=== PATIENT | female | born 1980 | race Caucasian/White ===

== ENCOUNTER 2025-04-21 12:43 | Observation (INO) | payer OTHER, SELFPAY ==
[2025-04-21] VITALS (13 sets, daily range): BP systolic 84–122; BP diastolic 47–79; PULSE 71–89; RESP 10–17; TEMP 35.9–36.8; O2SAT 86–100; BMI 28.3; BMI 29.9
--- NOTE | 2025-04-21 | PATH_ITS ---
[facility] Accession Number: [id number] No. of containers..01 Tissue . 01 Material submitted: . appendix - APPENDIX . 01 Diagnosis: A: APPENDIX, APPENDECTOMY: Acute suppurative appendicitis and periappendicitis. [facility] 04/25/2025 1241 Local . 01 Electronically signed: . Malvin Troncoso MD, Pathologist NPI- [id number] . 01 Gross description: . Received in formalin with two identifiers and appendix, is a cortes vermiform appendix, 6.2 cm in length and ranging from 0.4t to 1.2 cm in diameter. The serosa is cortes and roughened with adherent material consistent with exudate and a small amount of mesoappendix extending out to 0.9 cm. The margin is inked blue. The lumen contains a small amount of red-brown semisolid material and ranges from 0.1 to 0.5 cm in greatest dimension. The pyle range from 0.2 to 0.4 cm thick with no perforation or lesions identified. Nuisance Wildlife Trapper sections to include the margin, entire bisected distal tip, and cross section are submitted in A1. ([id number]) /MRV 04/24/20251954 Local . 01 Pathologist provided ICD-10: K37 . 01 CPT . 645106 Specimen Comment: A courtesy copy of this report has been sent to [facility] Pathology Performed at: [address] [address], [place], [place] [id number] MD Brent Baires MD Phone: [phone]
[2025-04-21 13:34] LABS: Add Manual Diff / Slide Review NO; Basophils Absolute Auto 100 /uL (0-100); Basophils Percent Auto 0.4 % (0-2); Eosinophils Absolute Auto 0 /uL (0-450); Eosinophils Percent Auto 0.3 % (2-4); Hematocrit 38.9 % (36-46); Hemoglobin 13.5 g/dL (12.0-16.0); Lymphocytes Absolute Auto 1300 /uL (1100-4500); Lymphocytes Percent Auto 11.1 % (25-40); Mean Corpuscular HGB Conc 34.7 % (30-36); Mean Corpuscular Hemoglobin 31.3 PG (26-34); Mean Corpuscular Volume 90.1 fL (80-100); Monocytes Absolute Auto 900 /uL (0-900); Monocytes Percent Auto 7.2 % (3-14); Neutrophils Absolute Auto 9600 /uL (1500-7000); Platelet Count 216 X10^3/uL (150-400); Red Blood Cell Count 4.31 X10^6/uL (4.0-5.2); Red Cell Distribution Width 12.7 % (11.6-14.8); White Blood Cell Count 11.9 X10^3/uL (4.5-11.0)
[2025-04-21 13:40] LABS: Alanine Aminotransferase 18 IU/L (<35); Albumin 4.3 g/dL (3.5-5.0); Albumin Globulin Ratio 1.4 (1.0-2.8); Alkaline Phosphatase 59 U/L (38-126); Aspartate Aminotransferase 23 IU/L (14-36); BUN Creatinine Ratio 16.9 (6-22); Bilirubin Total 0.8 mg/dL (0.2-1.3); Blood Urea Nitrogen 11 mg/dL (7-17); Calcium 8.9 mg/dL (8.4-10.2); Carbon Dioxide 19 mmol/L (22-32); Chloride 106 mmol/L (98-107); Estimated Glomerular Filt Rate > 60 mL/min (>60); Glucose 102 mg/dL (70-99); HEMOLYSIS 16 (0-50); Lipase 75 U/L (23-300); Potassium 3.8 mmol/L (3.4-5.1); Sodium 136 mmol/L (137-145); Total Protein 7.3 g/dL (6.3-8.2)
[2025-04-21 14:39] LABS: Bacteria Urine Occasional (0-1); Culture Indicated Urine Cult Not Indicated; RBC Urine 0-1/HPF (0-5/HPF); Squamous Epithelial Cell Urine 1-5 /HPF (0-5/HPF); Urine Volume 10mL (spun); WBC Urine None Seen (0-5/HPF)
[2025-04-21] MEDS: LACTATED RINGERS 1,000 ML 42 ML IV ×3 (16:30→20:54)
--- NOTE | 2025-04-21 16:42 | DI.CT.S_ITS ---
PROCEDURE: CT ABDOMEN PELVIS W CON INDICATIONS: RLQ pain, please evaluate for appendicitis TECHNIQUE: After the administration of intravenous contrast, axial sections acquired from the lung bases to the pubic symphysis. Coronal and sagittal reformats were performed. For radiation dose reduction, the following was used: automated exposure control, adjustment of mA and/or kV according to patient size. COMPARISON: None. FINDINGS: Image quality: Diagnostic. Lower Chest: No significant findings. ABDOMEN: Liver: No solid mass. Several water density liver cysts are seen. Gallbladder: No radiopaque gallstones or wall thickening. Biliary ducts: No biliary dilation. Pancreas: No ductal dilation. Spleen: Size is within normal limits. Adrenal Glands: No adrenal nodules. Kidneys and Ureters: No hydronephrosis. No solid mass. No complex renal cystic lesion which requires follow up. Bowel and peritoneal: The wall of the appendix is hyperenhancing and markedly thickened, with a caliber of 15 mm. Surrounding inflammatory change can be seen. No free air is seen. There is significant fluid seen along the right pericolic gutter, measuring at least 10 cm craniocaudal. No dilated loops of small bowel are seen. No significant colonic abnormality is seen. Ventral Wall: A mild periumbilical hernia is seen, containing fat. Abdominal Nodes: No retroperitoneal or mesenteric adenopathy by size criteria. Vessels: Aorta and inferior vena cava are normal in size. PELVIS: Pelvic Organs: The IUD is seen at its expected location. There is a likely left ovarian hemorrhagic cyst, as on series 2, image 100, measuring 2 cm. Bladder: No bladder wall thickening, accounting for underdistention. Pelvic Nodes: No enlarged lymph nodes. Miscellaneous: No inguinal hernias are seen. Bones: No aggressive osseous abnormality. IMPRESSION: Acute appendicitis, without kandy perforation. There is significant fluid along the right pericolic gutter, which may represent inflammatory fluid or abscess. Additional findings: Water density liver cysts Mild fat containing periumbilical hernia Likely left ovarian hemorrhagic cyst, 2 mm IUD Note: Case discussed by telephone with JOHN Orozco at 5:22 p.m. [place] time on April 21, 2025. Dictated by: Gerardo Arcos M.D. on 04/21/2025 at 16:13 Approved by: Gerardo Arcos M.D. on 04/21/2025 at 16:23
[2025-04-21] MEDS: KETOROLAC 30 MG/ML VIAL IV ×2 (16:51→19:32)
--- NOTE | 2025-04-21 17:55 | P.HP_ITS ---
History of Present Illness History of Present Illness Date Patient Seen: 04/21/25 Chief complaint: LRQ Abd Pain Narrative: 44-year-old female with an 18 hour history of generalized abdominal pain and bloating which subsequently localized to her right lower quadrant. She presented to the ED where right lower quadrant tenderness was elicited, white count of 11.[address] was [address] abdomen pelvis demonstrated findings consistent with acute appendicitis. She is admitted for definitive management. [facility] Social History Smoking Status: Never smoker Meds Home Medications and Allergies Allergies Allergy/AdvReac Type Severity Reaction Status Date / Time No Known Drug Allergies Allergy Verified 04/21/25 12:57 Review of Systems Review of Systems Narrative: Comprehensive review of systems negative to direct questioning with the exception of the previously mentioned chronic conditions. Exam Vital Signs (past 8 hours): - 04/21/25 12:57 04/21/25 16:45 Temperature 97.6 F 97.7 F Pulse Rate 89 75 Respiratory Rate 16 16 Blood Pressure 110/62 122/58 L Pulse Oximetry 100 99 Oxygen Delivery Method Room Air Room Air Oxygen Delivery Method Room Air Narrative Exam Narrative: In general this is well-nourished well-developed female alert and oriented x3 in no acute distress. She complains of right lower quadrant abdominal pain. Head is normocephalic and atraumatic. Neck is supple. Back is without CVA or spinous process tenderness. Lungs are clear to auscultation. Chest is symmetric nontender with normal inspiratory and expiratory excursion. Heart has a regular rate and rhythm with no murmur or gallop. Abdomen is generally soft with McBurney's point tenderness. There is no Rovsing sign. Bowel sounds are present. Neurological exam is grossly nonfocal. Skin is clear and there is no adenopathy. Extremities manifests full range of motion. Objective Labs 04/21/25 13:06 04/21/25 13:06 Labs: Laboratory Results - last 24 hr 04/21/25 04/21/25 13:06 14:05 WBC 11.9 H RBC 4.31 Hgb 13.5 Hct 38.9 MCV 90.1 MCH 31.3 MCHC 34.7 RDW 12.7 Plt Count 216 Neut % (Auto) 81.0 H Lymph % (Auto) 11.1 L [place] % (Auto) 7.2 Eos % (Auto) 0.3 L Baso % (Auto) 0.4 Neut # (Auto) 9600 H Lymph # (Auto) 1300 [place] # (Auto) 900 Eos # (Auto) 0 Baso # (Auto) 100 Sodium 136 L Potassium 3.8 Chloride 106 Carbon Dioxide 19 L BUN 11 Creatinine 0.65 Estimated GFR > 60 BUN/Creatinine Ratio 16.9 Glucose 102 H Calcium 8.9 Total Bilirubin 0.8 AST 23 ALT 18 Alkaline Phosphatase 59 Total Protein 7.3 Albumin 4.3 Globulin 3.0 Albumin/Globulin Ratio 1.4 Lipase 75 Urine RBC 0-1/hpf Urine WBC None seen Ur Squamous Epith Cells 1-5 /hpf Urine Bacteria Occasional (0-1) Ur Culture Indicated? Cult not indicated Vol Urine Centrifuged 10ml (spun) Assessment & Plan Assessment and plan (1) Acute appendicitis: Qualifiers: Acute appendicitis type: with localized peritonitis Appendicitis gangrene presence: without gangrene Appendicitis perforation presence: without perforation Appendicitis abscess presence: without abscess Qualified Code(s): K35.30 - Acute appendicitis with localized peritonitis, without perforation or gangrene Status: Acute Plan I have recommended a laparoscopic attempt at appendectomy. Alternatives, risks and benefits were discussed in detail. Questions were answered. Patient voices understanding and desires to proceed as I have outlined. Plan: Laparoscopic attempt at appendectomy. Time-Based Coding :: [TOTAL MINUTES] spent with patient and on the chart (including review of chart, obtaining history, exam, reviewing outside data, placing orders, documenting exam and treatment plan, and counseling patient) on [DATE]. 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
--- NOTE | 2025-04-21 18:02 | ED_ITS ---
HPI - Abdominal Pain General Chief Complaint: Abdominal Pain Stated Complaint: LRQ Abd Pain Time Seen by Provider: 04/21/25 16:17 Source: patient Mode of arrival: Ambulatory History of Present Illness HPI narrative: 44-year-old female here today for right lower quadrant pain. States last night after dinner she began experiencing bloating and discomfort in her abdomen along with nausea. Later in the evening the pain moved down to her right lower quadrant and all night she had difficulty getting comfortable. She had pain in whatever position she was in. No vomiting but felt nauseous all night. No fevers but had some chills. This morning the pain was slightly better but not by much. She took 3 ibuprofen this morning which did not help. States the pain has been constant and persistent and is worse whenever she tries to move. If she is sitting completely still it is manageable but As soon as she tries to shift positions or get up to walk the pain intensifies. pain continues to be in the right lower quadrant. She has no urinary symptoms. Last menstrual period 2 weeks ago. Has not IUD. No history of ovarian cysts. Related Data Home Medications Medication Instructions Recorded Confirmed amitriptyline 10 mg tablet 10 mg PO ONCE PM 04/21/25 04/21/25 levothyroxine 25 mcg tablet 25 mcg PO DAILY 04/21/25 04/21/25 sumatriptan succinate 50 mg tablet 50 mg PO DAILY PRN Migraine 04/21/25 04/21/25 Headache Previous Rx's Medication Instructions Recorded hydrocodone 5 mg-acetaminophen 325 1 tab PO Q6H PRN pain #30 tabs 04/22/25 mg tablet Allergies Allergy/AdvReac Type Severity Reaction Status Date / Time No Known Drug Allergies Allergy Verified 04/21/25 12:57 Review of Systems Review of Systems ROS Unobtainable: All systems reviewed & are unremarkable except as noted in HPI and below Patient History Social History household members: spouse Smoking Status: Never smoker Smoking Status: Never smoker Exam Narrative Exam Narrative: GENERAL: [44] year old patient appears stated age. Well-developed patient, in no acute distress. HEAD: Atraumatic. Normocephalic. EYES: Pupils equal round and reactive. Extraocular motions intact. No scleral icterus. No injection or drainage. ENT: Nose without bleeding, purulent drainage. Throat without erythema, tonsillar hypertrophy or exudate. Airway patent. NECK: Trachea midline. Non tender CARDIOVASCULAR: Regular rate and rhythm without murmurs, gallops, or rubs. RESPIRATORY: Clear to auscultation. Breath sounds equal bilaterally. No wheezes, rales, or rhonchi. GASTROINTESTINAL: Abdomen soft, nondistended. no guarding or rebound. Tenderness to light palpation present in the McBurney's region. Positive psoas sign. SKIN: No rash or erythema of visible areas Initial Vital Signs Initial Vital Signs: Vital Signs Temperature 97.6 F 04/21/25 12:57 Pulse Rate 89 04/21/25 12:57 Respiratory Rate 16 04/21/25 12:57 Blood Pressure 110/62 04/21/25 12:57 Pulse Oximetry 100 04/21/25 12:57 Oxygen Delivery Method Room Air 04/21/25 12:57 Course Orders Ordered: Discontinued Medications Acetaminophen (Acetaminophen 325 Mg Tablet) 650 mg PO Q6H LULY Hydrocodone Bitart/Acetaminophen (Hydrocodone/Acet 5/325 Tablet) 1 tab PO Q4H PRN PRN Reason: Pain, Moderate (4-6) Benzocaine (Benzocaine/Menthol 1 Shruthi Pkt) 1 each PO PRN PRN PRN Reason: Sore Throat Bupivacaine HCl (Bupivacaine 0.5% (Pf) 30 Ml Vial) 30 ml INJ NOW ONE Stop: 04/21/25 18:54 Last Admin: 04/21/25 18:53 Dose: 9 ml Documented By: RT Dexamethasone (Dexamethasone 10 Mg/Ml Vial) 8 mg IV NOW PRN PRN Reason: Nausea And Vomiting Enoxaparin Sodium (Enoxaparin 40 Mg/0.4 Ml Syringe) 40 mg SUBCUT DAILY [facility] Fentanyl (Fentanyl 100 Mcg/2 Ml Inj) 0 mcg IV Q5M PRN PRN Reason: Pain, Moderate (4-6) Hydromorphone HCl (Hydromorphone 1 Mg Inj) 0 mg IV Q5MIN PRN PRN Reason: Pain, Moderate (4-6) Hydromorphone HCl (Hydromorphone 2 Mg Tablet) 4 mg PO Q4HR PRN PRN Reason: Pain, Severe (7-10) Hydromorphone HCl (Hydromorphone 0.5 Mg Inj) 0.5 mg IV Q2H PRN PRN Reason: Pain, Severe (7-10) Hydroxyzine HCl (Hydroxyzine 50 Mg/Ml Inj) 25 mg IM NOW PRN PRN Reason: Pain, Mild (1-3) Hydroxyzine HCl (Hydroxyzine Hcl 25 Mg Tablet) 25 mg PO NOW PRN PRN Reason: Pain, Mild (1-3) Cefazolin Sodium/Dextrose (Ancef) 100 mls @ 200 mls/hr IV NOW ONE Stop: 04/21/25 18:28 Last Infusion: 04/21/25 18:37 Dose: 200 mls/hr Documented By: Admin: 04/21/25 18:28 Dose: 200 mls/hr Documented By: MARTHA Acetaminophen (Ofirmev) 1,000 mg in 100 mls @ 400 mls/hr IV NOW ONE Stop: 04/21/25 19:09 Last Infusion: 04/21/25 19:10 Dose: Infused Documented By: Admin: 04/21/25 18:55 Dose: 400 mls/hr Documented By: MARTHA Lactated Ringer's (Lactated Ringers) 1,000 mls @ 125 mls/hr IV CONT [facility] Last Admin: 04/21/25 21:17 Dose: Not Given Documented By: AT Lactated Ringer's (Lactated Ringers) 1,000 mls @ 42 mls/hr IV CONT [facility] Last Admin: 04/21/25 20:54 Dose: 42 mls/hr Documented By: Infusion: 04/21/25 20:54 Dose: Infused Documented By: Infusion: 04/21/25 19:51 Dose: Infused Documented By: Admin: 04/21/25 19:51 Dose: 42 mls/hr Documented By: Admin: 04/21/25 16:30 Dose: 42 mls/hr Documented By: CB Ketorolac Tromethamine (Ketorolac 30 Mg/Ml Vial) 30 mg IV NOW ONE Stop: 04/21/25 16:42 Last Admin: 04/21/25 19:32 Dose: 30 mg Documented By: Admin: 04/21/25 16:51 Dose: 30 mg Documented By: SB Naloxone HCl (Naloxone 0.4 Mg/Ml Vial) 0.2 mg IV Q2MIN PRN PRN Reason: Opiate Reversal Ondansetron HCl (Ondansetron 4 Mg/2 Ml Inj) 4 mg IV NOW PRN PRN Reason: Nausea And Vomiting Ondansetron HCl (Ondansetron 4 Mg Odt) 4 mg PO NOW PRN PRN Reason: Nausea And Vomiting Ondansetron HCl (Ondansetron 4 Mg/2 Ml Inj) 4 mg IV NOW PRN PRN Reason: Nausea And Vomiting Ondansetron HCl (Ondansetron 4 Mg/2 Ml Inj) 4 mg IV Q4HR PRN PRN Reason: Nausea And Vomiting Oxycodone HCl (Oxycodone Ir 5 Mg Tablet) 5 mg PO [place] PRN PRN Reason: Mild or moderate pain Scopolamine (Scopolamine 1 Patch) 1 patch TOP NOW ONE Stop: 04/21/25 19:13 Last Admin: 04/21/25 19:48 Dose: 1 patch Documented By: BATOOL Vital Signs Vital signs: Vital Signs - 8 hr 04/21/25 12:57 04/21/25 16:45 Temperature 97.6 F 97.7 F Pulse Rate 89 75 Respiratory Rate 16 16 Blood Pressure 110/62 122/58 L Pulse Oximetry 100 99 Oxygen Delivery Method Room Air Room Air MDM - Abdominal Pain Lab Data 04/21/25 13:06 04/21/25 13:06 Labs: Lab Results 04/21/25 04/21/25 Range/Units 13:06 14:05 WBC 11.9 H (4.5-11.0) X10^3/uL RBC 4.31 (4.0-5.2) X10^6/uL Hgb 13.5 (12.0-16.0) g/dL Hct 38.9 (36-46) % MCV 90.1 (80-100) fL MCH 31.3 (26-34) PG MCHC 34.7 (30-36) % RDW 12.7 (11.6-14.8) % Plt Count 216 (150-400) X10^3/uL Neut % (Auto) 81.0 H (50-75) % Lymph % (Auto) 11.1 L (25-40) % [place] % (Auto) 7.2 (3-14) % Eos % (Auto) 0.3 L (2-4) % Baso % (Auto) 0.4 (0-2) % Neut # (Auto) 9600 H (2446-3853) /uL Lymph # (Auto) 1300 (6929-0550) /uL [place] # (Auto) 900 (0-900) /uL Eos # (Auto) 0 (0-450) /uL Baso # (Auto) 100 (0-100) /uL Sodium 136 L (137-145) mmol/L Potassium 3.8 (3.4-5.1) mmol/L Chloride 106 (98-107) mmol/L Carbon Dioxide 19 L (22-32) mmol/L BUN 11 (7-17) mg/dL Creatinine 0.65 (0.52-1.04) mg/dL Estimated GFR > 60 (>60) mL/min BUN/Creatinine Ratio 16.9 (6-22) Glucose 102 H (70-99) mg/dL Calcium 8.9 (8.4-10.2) mg/dL Total Bilirubin 0.8 (0.2-1.3) mg/dL AST 23 (14-36) IU/L ALT 18 (<35) IU/L Alkaline Phosphatase 59 (38-126) U/L Total Protein 7.3 (6.3-8.2) g/dL Albumin 4.3 (3.5-5.0) g/dL Globulin 3.0 (1.7-4.1) g/dL Albumin/Globulin Ratio 1.4 (1.0-2.8) Lipase 75 (23-300) U/L Urine RBC 0-1/hpf (0-5/HPF) Urine WBC None seen (0-5/HPF) Ur Squamous Epith Cells 1-5 /hpf (0-5/HPF) Urine Bacteria Occasional (0-1) (None) Ur Culture Indicated? Cult not indicated Vol Urine Centrifuged 10ml (spun) Point of care testing: Urine Dip Bedside Urine Glucose Negative Bedside Urine Bilirubin - Negative Bedside Urine Ketone - Negative Urine Specific [place] 1.005 Bedside Urine Occult Blood + Bedside Urine pH 6.0 Bedside Urine Protein - Negative Bedside Urine Urobilinogen - Negative Bedside Urine Nitrite - Negative Bedside Urine Leukocytes - Negative Esterase Imaging Data CT scan - abdomen/pelvis: Radiologist's Impression: [address] [address] [address] Scan Report Signed Patient: Luly Tom MR#: [id number] : 1980 Acct:[id number] Age/Sex: 44 / F Date of Service: 04/21/25 Loc: ED Accession Number: [id number] Procedure: CT abdomen pelvis w con Ordering Provider: Pam Roblero PA-C PROCEDURE: CT ABDOMEN PELVIS W CON INDICATIONS: RLQ pain, please evaluate for appendicitis TECHNIQUE: After the administration of intravenous contrast, axial sections acquired from the lung bases to the pubic symphysis. Coronal and sagittal reformats were performed. For radiation dose reduction, the following was used: automated exposure control, adjustment of mA and/or kV according to patient size. COMPARISON: None. FINDINGS: Image quality: Diagnostic. Lower Chest: No significant findings. ABDOMEN: Liver: No solid mass. Several water density liver cysts are seen. Gallbladder: No radiopaque gallstones or wall thickening. Biliary ducts: No biliary dilation. Pancreas: No ductal dilation. Spleen: Size is within normal limits. Adrenal Glands: No adrenal nodules. Kidneys and Ureters: No hydronephrosis. No solid mass. No complex renal cystic lesion which requires follow up. Bowel and peritoneal: The wall of the appendix is hyperenhancing and markedly thickened, with a caliber of 15 mm. Surrounding inflammatory change can be seen. No free air is seen. There is significant fluid seen along the right pericolic gutter, measuring at least 10 cm craniocaudal. No dilated loops of small bowel are seen. No significant colonic abnormality is seen. Ventral Wall: A mild periumbilical hernia is seen, containing fat. Abdominal Nodes: No retroperitoneal or mesenteric adenopathy by size criteria. Vessels: Aorta and inferior vena cava are normal in size. PELVIS: Pelvic Organs: The IUD is seen at its expected location. There is a likely left ovarian hemorrhagic cyst, as on series 2, image 100, measuring 2 cm. Bladder: No bladder wall thickening, accounting for underdistention. Pelvic Nodes: No enlarged lymph nodes. Miscellaneous: No inguinal hernias are seen. Bones: No aggressive osseous abnormality. IMPRESSION: Acute appendicitis, without kandy perforation. There is significant fluid along the right pericolic gutter, which may represent inflammatory fluid or abscess. Additional findings: Water density liver cysts Mild fat containing periumbilical hernia Likely left ovarian hemorrhagic cyst, 2 mm IUD Note: Case discussed by telephone with JOHN Orozco at 5:22 p.m. [place] time on April 21, 2025. Dictated by: Gerardo Arcos M.D. on 04/21/2025 at 16:13 Approved by: Gerardo Arcos M.D. on 04/21/2025 at 16:23 [facility] Narrative Medical decision making narrative: differential includes but not limited to ovarian cyst, ovarian torsion, UTI, acute appendicitis, ectopic patient looks well, is afebrile, in no acute distress. However when she tries to move positions she is clearly quite uncomfortable. WBC very slightly elevated at 11.9 but otherwise labs are unremarkable. UA normal. On exam she has right lower quadrant tenderness at McBurney's point and a positive psoas sign. When I laid the patient flat for the exam she was very uncomfortable and had to flex her right leg up to get more comfortable. All of this is suspicious for appendicitis and needs to be further evaluated with CT. Toradol 30 mg given IV. Patient NPO. CT scan shows acute appendicitis. informed Dr. Rosenbaum, general surgery. he presented to the ED to examine patient and patient was taken to the OR at 1800. she will be admitted after surgery. Discharge Plan Departure Patient Disposition: Admitted to Surgery Clinical Impression: Acute appendicitis Qualifiers: Acute appendicitis type: with localized peritonitis Appendicitis gangrene presence: unspecified whether gangrene present Appendicitis perforation presence: without perforation Appendicitis abscess presence: unspecified whether abscess present Qualified Code(s): K35.30 - Acute appendicitis with localized peritonitis, without perforation or gangrene Admit Date/Time: 04/21/25 17:54 Admit Provider: Noble Rosenbaum
[2025-04-21] MEDS: CEFAZOLIN 2 GM/100 ML PREMIX 100 ML IV (18:28)
--- NOTE | 2025-04-21 18:44 | SUR.OPER ---
Supine on padded OR bed, head on pillow, safety belt at thigh, left arm padded and tucked at side. Right arm secured on padded arm board <90 degrees abduction. Legs uncrossed. Padded footboard in place. Tape over blanket to secure lower legs.
[2025-04-21] MEDS: BUPIVACAINE 0.5% (PF) 30 ML VIAL INJ (18:53)
[2025-04-21] MEDS: ACETAMINOPHEN IV 1,000 MG/100 ML VIAL 400 MG IV (18:55)
--- NOTE | 2025-04-21 19:21 | PM.OP.1 ---
Operative Date/Time/Diagnoses Date of procedure: 04/21/25 Time of procedure: 16:30 Pre-op diagnosis: Acute appendicitis Post-op diagnosis: same Procedure & Clinicians Procedure: Laparoscopic appendectomy Same procedure as scheduled: Yes Surgeon: Noble Rosenbaum Click Yes if Unassisted: Yes Anesthesia Type: General Operative Notes Findings: Acute appendicitis Closure Type: primary Specimen(s): other (Vermiform appendix) Estimated Blood Loss (mL): 10 Blood products transfused: none Procedure in detail: After obtaining informed consent properly identifying the patient the patient was transported to the operating room and was placed on the table in the supine position. General endotracheal anesthesia was induced. The abdomen was prepped and draped in the usual sterile manner. Time-out protocol was observed. A vertical midline incision of 3 cm length was made with a 15 blade with its caudad apex at the umbilical verge. This was carried down onto the fascia with electrocautery pre and traction sutures of 0 Vicryl were placed on either side of midline. A peritoneotomy was made between the traction sutures with a 15 blade under direct vision. A 12 mm [place] cannula was installed and was secured by inflating the balloon at its tip. Pneumoperitoneum was instilled. A 5 mm 30 degree angled laparoscope was passed in the posterior surface of the lower abdominal wall was visualized. Two additional 5 mm ports were positioned under direct laparoscopic vision through 6 mm incisions. The 1st was positioned 2[address] from the umbilicus to the pubis, and the 2nd chcf between the 1st 5 mm port in the umbilicus, 2 fingerbreadths left of midline. The appendix was visualized. It was intact. There was a small amount of fluid in the right pericolic gutter. There was no abscess. The lateral appendiceal attachments were taken with the LigaSure. Subsequently the mesoappendix was taken sharply with the LigaSure down to the confluence of the appendiceal base and cecal wall. Once this dissection was completed, the 5 mm 30 degree angled scope was moved to the left lower quadrant port and an echelon stapler was passed through the [place]. Under direct laparoscopic vision it was applied across the confluence of the appendiceal base and cecal wall, was closed and fired. The echelon was withdrawn from the peritoneal cavity in an Endo-Catch specimen extractor was passed. The specimen was bagged under direct laparoscopic vision and the [place]on balloon was deflated. The Endo-Catch, Ha[place]on and specimen were withdrawn from the supraumbilical port site as a unit. The specimen was passed from the field and the [place] and 5 mm angled 30 degree scope were restored to their original positions. The operative field was copiously irrigated and all irrigant was evacuated. Attention was directed to the pelvis and a small amount of turbid fluid was aspirated from the cul-de-sac. The cul-de-sac was irrigated and all irrigant was aspirated. All laparoscopic equipment was withdrawn under direct laparoscopic vision. Pneumoperitoneum was evacuated and ports were withdrawn. The supraumbilical fascial defect was closed with a running 0 Prolene stitch. Field blocks of 0.5% Marcaine were instilled into the wounds which were then closed with a series of inverted deep dermal 3-0 Vicryl sutures and Dermabond. Dressings were applied. The patient tolerated the procedure well and was transported to the recovery room extubated in stable condition. Complications: none Post-operative Condition: stable Disposition: PACU Plan for aftercare: Observe overnight. Discharge home in the morning if she does well.
[2025-04-21] MEDS: SCOPOLAMINE 1 PATCH TOP (19:48)
[2025-04-22 03:40] VITALS: BP 97/58; PULSE 69; RESP 15; TEMP 36.2; O2SAT 96
--- NOTE | 2025-04-22 08:39 | PM.PN.IH.1 ---
Subjective Subjective Date Patient Seen: 04/22/25 Interval history: Feels much better than preoperatively. Pain control adequate. Tolerant of liquids. Exam Vital Signs (past 8 hours): - 04/22/25 03:00 04/22/25 03:40 Temperature 97.1 F L Pulse Rate 69 Respiratory Rate 15 Blood Pressure 97/58 L Pulse Oximetry 96 Oxygen Delivery Method Room Air Oxygen Flow Rate 0 Oxygen Delivery Method Room Air Oxygen Flow Rate 0 Narrative Exam Narrative: Lungs are clear to auscultation. Heart has a regular rate and rhythm with no murmur or gallop. Abdomen is soft with appropriate incisional tenderness. Bowel sounds are present. Objective Labs 04/21/25 13:06 04/21/25 13:06 Labs: Laboratory Results - last 24 hr 04/21/25 04/21/25 13:06 14:05 WBC 11.9 H RBC 4.31 Hgb 13.5 Hct 38.9 MCV 90.1 MCH 31.3 MCHC 34.7 RDW 12.7 Plt Count 216 Neut % (Auto) 81.0 H Lymph % (Auto) 11.1 L [place] % (Auto) 7.2 Eos % (Auto) 0.3 L Baso % (Auto) 0.4 Neut # (Auto) 9600 H Lymph # (Auto) 1300 [place] # (Auto) 900 Eos # (Auto) 0 Baso # (Auto) 100 Sodium 136 L Potassium 3.8 Chloride 106 Carbon Dioxide 19 L BUN 11 Creatinine 0.65 Estimated GFR > 60 BUN/Creatinine Ratio 16.9 Glucose 102 H Calcium 8.9 Total Bilirubin 0.8 AST 23 ALT 18 Alkaline Phosphatase 59 Total Protein 7.3 Albumin 4.3 Globulin 3.0 Albumin/Globulin Ratio 1.4 Lipase 75 Urine RBC 0-1/hpf Urine WBC None seen Ur Squamous Epith Cells 1-5 /hpf Urine Bacteria Occasional (0-1) Ur Culture Indicated? Cult not indicated Vol Urine Centrifuged 10ml (spun) PFSH Social History household members: spouse Smoking Status: Never smoker Assessment & Plan Assessment and plan (1) Acute appendicitis: Qualifiers: Acute appendicitis type: with localized peritonitis Appendicitis gangrene presence: unspecified whether gangrene present Appendicitis perforation presence: without perforation Appendicitis abscess presence: unspecified whether abscess present Qualified Code(s): K35.30 - Acute appendicitis with localized peritonitis, without perforation or gangrene Status: Acute Plan Doing well postop day 1 from laparoscopic appendectomy for acute appendicitis. Discharge to home. Follow up with me 7-10 days. Time-Based Coding :: [TOTAL MINUTES] spent with patient and on the chart (including review of chart, obtaining history, exam, reviewing outside data, placing orders, documenting exam and treatment plan, and counseling patient) on [DATE]. Quality VTE Deep Vein Thrombosis/Pulmonary Embolism Present on Admission: No [facility] [employer] Document charge(s): No
--- NOTE | 2025-04-22 10:25 | PC.NURSE ---
Patient has 3 lower incisions covered with small mepelex dressings all cdi and bt+x4. Patient ambulating in the halls and will be discharging around 11AM.
== END 2025-04-22 11:00 | disposition home or self-care (01) ==
LOC: ED 17:53 → AC 17:55
PROVIDERS: Student in an Organized Health Care Education/Training Program; Admitting Provider Surgery; Emergency Provider Physician Assistant; Referring Provider Physician Assistant; Visit Provider Surgery
PROC: 0DTJ4ZZ Resection of Appendix, Percutaneous Endoscopic Approach (ICD-10-PCS; CPT 44970; principal; 2025-04-21 18:30)
DX: R10.31 Right lower quadrant pain (principal); K35.80 Unspecified acute appendicitis
CPT/HCPCS: 44970; 36415; 74177; 80053; 81003; 81015; 83690; 85025; 96372; 96374; 96375; 96376; 99222; 99284; G0378; J0131; J0690; J1100; J1171; J1885; J2250; J2405; J2704; J3010; J3490; Q9967